=== PATIENT | female | born 1965 | race Caucasian/White ===

== ENCOUNTER → 2019-08-19 | Day surgery (SDC) | payer BC ==
[~2019-08-19] MED LIST: ACETAMINOPHEN 325 MG TABLET PO PRN; ALBUTEROL SULFATE 2.5 MG/3 ML NEBU. NEB PRN; ATROPINE 0.5 MG/5 ML DISP.SYRIN. IV PRN; BUPR300T3 PO; IV RINGERS SOLUTION,LACTATED 1,000 ML IV SCH; LISI30TA4 PO; ONDANSETRON PF 4 MG/2 ML VIAL. IV PRN; PHENOL ORAL SPRAY 177ML BOTTLE. MM PRN; PROPOFOL 20 ML IV ONE; diphenhydrAMINE 50 MG/ML VIAL IV PRN
[2019-08-19 12:43] VITALS: BP 154/82
== END | disposition home or self-care (01) ==
LOC: SURG 10:12
PROVIDERS: ATTEND Emergency Medicine
DX: Z08 Encounter for follow-up examination after completed treatment for malignant neoplasm (principal); C19 Malignant neoplasm of rectosigmoid junction; I10 Essential (primary) hypertension; F41.9 Anxiety disorder, unspecified; F32.9 Major depressive disorder, single episode, unspecified; Z90.710 Acquired absence of both cervix and uterus; Z87.39 Personal history of other diseases of the musculoskeletal system and connective tissue; Z98.51 Tubal ligation status
CPT/HCPCS: 45378; J2704; J7120